=== PATIENT | female | born 1935 | race Hispanic/Latino ===

== ENCOUNTER → 2017-12-08 | Outpatient (CLI) | payer MEDICARE ==
[~2017-12-08] MED LIST: FURO20TA4 PO; METO100T7 PO; SACU1TAB7 PO
== END | disposition home or self-care (01) ==
LOC: SHCH 09:41
PROVIDERS: ATTEND Internal Medicine Cardiovascular Disease
DX: I08.1 Rheumatic disorders of both mitral and tricuspid valves (principal); I25.5 Ischemic cardiomyopathy
CPT/HCPCS: 93306

== ENCOUNTER 2017-12-13 13:31 | Emergency (ER) | payer MEDICARE ==
[2017-12-13 14:08] LABS: BASOPHILS % (AUTO) 1.4 % (0.0-5.0); EOSINOPHILS % (AUTO) 3.4 % (0.0-8.0); HEMATOCRIT 36.8 % (36-48); LYMPHOCYTES % (AUTO) 28.4 % (21.0-51.0); MEAN CORPUSCULAR HGB CONC 33.8 g/dL (32.0-36.0); MEAN CORPUSCULAR VOLUME 88.9 fL (79-99); MONOCYTES % (AUTO) 12.8 % (3.0-13.0); NUCLEATED RED BLOOD CELLS 0.1 % (0.0-0.19); PLATELET COUNT (AUTO) 162 K/uL (130-400); RED BLOOD CELL COUNT(AUTO) 4.14 MIL/uL (4.00-5.50); RED CELL DISTRIBUTION WIDTH 12.8 % (11.0-15.5); WHITE BLOOD COUNT (AUTO) 5.7 K/uL (4.8-10.8)
[2017-12-13 14:13] LABS: CREATININE 1.2 mg/dL (0.5-1.5)
[2017-12-13 14:17] LABS: INR 1.02 (0.85-1.15); PARTIAL THROMBOPLASTIN TIME 28.2 SEC (26.3-35.5); PROTHROMBIN TIME 10.7 SEC (9.6-11.6)
[2017-12-13 14:18] LABS: ALBUMIN 3.8 g/dL (3.5-5.0); BILIRUBIN,TOTAL 0.4 mg/dL (0.2-1.0); TOTAL PROTEIN, SERUM 7.7 g/dL (6.0-8.3)
[2017-12-13 15:36] LABS: APPEARANCE,URINE Clear (CLEAR); BILIRUBIN,URINE Negative (NEGATIVE); COLOR,URINE Yellow (YELLOW); GLUCOSE, URINE (UA) Negative (NEGATIVE); KETONES,URINE Negative (NEGATIVE); LEUKOCYTE ESTERASE ,URINE Small (NEGATIVE); NITRATE,URINE Negative (NEGATIVE); OCCULT BLOOD,URINE Negative (NEGATIVE); PROTEIN,URINE Negative (NEGATIVE); UROBILINOGEN,URINE 0.2 mg/dL (0.2-1.0)
[2017-12-13 16:25] LABS: RBC,URINE 0-1 /HPF (0-1)
[2017-12-13 16:26] LABS: BACTERIA,URINE Rare /HPF (None Seen); SQUAMOUS EPITHELIAL CELL,UR Rare /LPF (0-2); WBC,URINE 0-1 /HPF (0-1)
== END 2017-12-13 18:09 | disposition home or self-care (01) ==
LOC: EDH 13:31
DX: H81.319 Aural vertigo, unspecified ear (principal); I10 Essential (primary) hypertension; E78.5 Hyperlipidemia, unspecified
CPT/HCPCS: 36415; 70450; 71046; 80053; 81001; 82550; 84484; 85025; 85610; 85730; 87804; 93005

== ENCOUNTER 2018-01-04 13:25 | Observation (INO) | payer MEDICARE ==
[~2018-01-04] VITALS: Ht 152.4 cm; Wt 37.0 kg
[2018-01-04 14:44] LABS: BASOPHILS % (AUTO) 0.5 % (0.0-5.0); HEMATOCRIT 29.6 % (36-48); LYMPHOCYTES % (AUTO) 28.2 % (21.0-51.0); MEAN CORPUSCULAR HEMOGLOBIN 30.4 pg (27.0-33.0); MEAN CORPUSCULAR HGB CONC 34.3 g/dL (32.0-36.0); MEAN CORPUSCULAR VOLUME 88.8 fL (79-99); MONOCYTES % (AUTO) 18.5 % (3.0-13.0); NEUTROPHILS % (AUTO) 52.8 % (40.0-77.0); NUCLEATED RED BLOOD CELLS 0.1 % (0.0-0.19); PLATELET COUNT (AUTO) 79 K/uL (130-400); RED BLOOD CELL COUNT(AUTO) 3.34 MIL/uL (4.00-5.50); WHITE BLOOD COUNT (AUTO) 2.5 K/uL (4.8-10.8)
[2018-01-04 15:13] LABS: CREATINE KINASE MB 1.1 ng/mL (0.5-3.6)
[2018-01-04 15:15] LABS: BILIRUBIN,URINE Negative (NEGATIVE); COLOR,URINE Yellow (YELLOW); GLUCOSE, URINE (UA) Negative (NEGATIVE); KETONES,URINE Negative (NEGATIVE); LEUKOCYTE ESTERASE ,URINE Small (NEGATIVE); NITRATE,URINE Negative (NEGATIVE); OCCULT BLOOD,URINE Negative (NEGATIVE); PROTEIN,URINE POS 1+ (NEGATIVE)
[2018-01-04 15:16] LABS: APPEARANCE,URINE SLIGHTLY CLOUDY (CLEAR)
[2018-01-04 15:25] LABS: BACTERIA,URINE Few /HPF (None Seen); RBC,URINE 0-1 /HPF (0-1)
[2018-01-04 15:26] LABS: COARSE GRANULAR CASTS,URINE 0-2 /LPF (None Seen); MUCUS,URINE Rare LPF (None Seen); SQUAMOUS EPITHELIAL CELL,UR Few /LPF (0-2)
[2018-01-04] MEDS ORDERED: ASPIRIN 325 MG TABLET ONE (15:26)
[2018-01-04] MEDS ORDERED: ENOXAPARIN SODIUM 40 MG/0.4 ML SYRINGE SQ ONE (15:26)
[2018-01-04 15:41] LABS: BAND NEUTROPHILS % (MANUAL) 4 % (0-2); LYMPHOCYTES % (MANUAL) 38 % (22-44); MONOCYTES % (MANUAL) 10 % (2-9); SEGMENTED NEUTROPHILS % 48 % (40-70)
[2018-01-04 15:42] LABS: MAN.DIFF COMMENT-IMPRESSION MANUAL DIFFERENTIAL
[2018-01-04] MEDS ORDERED: OSELTAMIVIR PHOSPHATE 75 MG CAP ONE (16:17)
[2018-01-04] MEDS ORDERED: 1/2 NORMAL SALINE 1,000 ML IV ONE (18:20)
[2018-01-04 18:28] LABS: CREATINE KINASE MB 1.3 ng/mL (0.5-3.6)
[2018-01-04 18:38] LABS: CREATININE 2.2 mg/dL (0.5-1.5); POTASSIUM 4.2 mmol/L (3.5-5.1)
[2018-01-04 21:35] VITALS: BP 138/64
[2018-01-04 22:51] LABS: CREATINE KINASE MB 1.2 ng/mL (0.5-3.6)
[2018-01-04 22:57] LABS: TROPONIN I 1.41 ng/mL (0.00-0.06)
[2018-01-04] MEDS ORDERED: 1/2 NORMAL SALINE 1,000 ML IV SCH (23:15)
[2018-01-05] VITALS (7 sets, daily range): BP systolic 135–142; BP diastolic 62–69
[2018-01-05 06:16] LABS: ALBUMIN 3.2 g/dL (3.5-5.0); BILIRUBIN,TOTAL 0.6 mg/dL (0.2-1.0); CREATININE 2.3 mg/dL (0.5-1.5); POTASSIUM 4.2 mmol/L (3.5-5.1); TOTAL PROTEIN, SERUM 6.4 g/dL (6.0-8.3)
[2018-01-05 07:10] LABS: BASOPHILS % (AUTO) 0.3 % (0.0-5.0); HEMATOCRIT 32.1 % (36-48); LYMPHOCYTES % (AUTO) 25.4 % (21.0-51.0); MEAN CORPUSCULAR HEMOGLOBIN 30.8 pg (27.0-33.0); MEAN CORPUSCULAR HGB CONC 34.6 g/dL (32.0-36.0); MEAN CORPUSCULAR VOLUME 88.9 fL (79-99); MONOCYTES % (AUTO) 15.5 % (3.0-13.0); NEUTROPHILS % (AUTO) 58.8 % (40.0-77.0); PLATELET COUNT (AUTO) 94 K/uL (130-400); RED BLOOD CELL COUNT(AUTO) 3.61 MIL/uL (4.00-5.50); RED CELL DISTRIBUTION WIDTH 13.3 % (11.0-15.5); WHITE BLOOD COUNT (AUTO) 3.1 K/uL (4.8-10.8)
[2018-01-05] MEDS ORDERED: COMPOUND PO MISCELLANEOUS 1 EACH MISC MISC PRN (07:30)
[2018-01-05] MEDS: AZITHROMYCIN 250 MG TABLET PO SCH (08:55)
[2018-01-05] MEDS ORDERED: PHARMACY COMMUNICATION MISC SCH (09:00)
[2018-01-05] MEDS: OSELTAMIVIR SUSP 15 MG/ML (6 CAPS/29ML) PO SCH ×2 (09:30)
[2018-01-05] MEDS ORDERED: METO100T7 PO (10:08)
[2018-01-05] MEDS ORDERED: SACU1TAB7 PO (10:08)
[2018-01-05] MEDS ORDERED: FURO20TA4 PO (10:08)
[2018-01-05] MEDS: FUROSEMIDE 10 MG/ML 2ML VIAL IV SCH ×2 (12:23→23:03)
[2018-01-05] MEDS: METOPROLOL TARTRATE 50 MG TAB PO SCH (19:50)
[2018-01-05] MEDS: ENTRESTO PO SCH (19:51)
[2018-01-06 04:00] VITALS: BP 142/67
[2018-01-06 06:13] LABS: CREATININE 2.1 mg/dL (0.5-1.5); POTASSIUM 3.8 mmol/L (3.5-5.1)
[2018-01-06 07:00] VITALS: BP 141/60
[2018-01-06] MEDS: METOPROLOL TARTRATE 50 MG TAB PO SCH (08:41)
[2018-01-06] MEDS: AZITHROMYCIN 250 MG TABLET PO SCH (08:41)
[2018-01-06] MEDS: OSELTAMIVIR SUSP 15 MG/ML (6 CAPS/29ML) PO SCH ×2 (08:42)
[2018-01-06] MEDS: ENTRESTO PO SCH (08:43)
[2018-01-06] MEDS ORDERED: FUROSEMIDE 20 MG TABLET PO SCH (09:00)
[2018-01-06] MEDS ORDERED: LOSARTAN 50 MG TABLET PO SCH (09:00)
[2018-01-06] MEDS ORDERED: ENOXAPARIN SODIUM 30 MG/0.3 ML SQ SCH (09:00)
== END 2018-01-06 10:45 | disposition home or self-care (01) ==
LOC: EDH 13:25 → EDHIP 15:55 → 4CH 20:54
PROVIDERS: ADMIT Internal Medicine; ATTEND Internal Medicine
DX: J11.1 Influenza due to unidentified influenza virus with other respiratory manifestations (principal); J40 Bronchitis, not specified as acute or chronic; E86.0 Dehydration; E78.5 Hyperlipidemia, unspecified; I13.0 Hypertensive heart and chronic kidney disease with heart failure and stage 1 through stage 4 chronic kidney disease, or unspecified chronic kidney disease; N18.4 Chronic kidney disease, stage 4 (severe); I50.43 Acute on chronic combined systolic (congestive) and diastolic (congestive) heart failure; I25.5 Ischemic cardiomyopathy; I25.10 Atherosclerotic heart disease of native coronary artery without angina pectoris; I09.9 Rheumatic heart disease, unspecified; I34.0 Nonrheumatic mitral (valve) insufficiency; Z85.3 Personal history of malignant neoplasm of breast
CPT/HCPCS: 36415 ×3; 71045; 80048 ×2; 80053; 81001; 82550 ×3; 82553 ×3; 83874; 83880; 84484 ×3; 85007; 85025 ×2; 87804 ×2; 93005 ×2; 96374; 96376; 99285; G0378 ×43; J1650; J1940 ×2

== ENCOUNTER 2018-01-12 10:35 | Inpatient (IN) | payer MEDICARE ==
[~2018-01-12] VITALS: Ht 152.4 cm; Wt 33.2 kg
[~2018-01-12 10:35] MED LIST changes: -FURO20TA4 PO
[2018-01-12 11:32] LABS: BASOPHILS % (AUTO) 0.8 % (0.0-5.0); EOSINOPHILS % (AUTO) 0.3 % (0.0-8.0); HEMATOCRIT 32.5 % (36-48); LYMPHOCYTES % (AUTO) 14.3 % (21.0-51.0); MEAN CORPUSCULAR HEMOGLOBIN 30.5 pg (27.0-33.0); MEAN CORPUSCULAR HGB CONC 34.5 g/dL (32.0-36.0); MEAN CORPUSCULAR VOLUME 88.6 fL (79-99); MONOCYTES % (AUTO) 8.8 % (3.0-13.0); NEUTROPHILS % (AUTO) 75.8 % (40.0-77.0); PLATELET COUNT (AUTO) 196 K/uL (130-400); RED BLOOD CELL COUNT(AUTO) 3.67 MIL/uL (4.00-5.50); RED CELL DISTRIBUTION WIDTH 13.3 % (11.0-15.5); WHITE BLOOD COUNT (AUTO) 6.1 K/uL (4.8-10.8)
[2018-01-12 11:37] LABS: CREATININE 1.4 mg/dL (0.5-1.5); POTASSIUM 3.2 mmol/L (3.5-5.1)
[2018-01-12 11:51] LABS: ALBUMIN 3.5 g/dL (3.5-5.0); BILIRUBIN,TOTAL 0.8 mg/dL (0.2-1.0); CREATINE KINASE MB 0.9 ng/mL (0.5-3.6); TOTAL PROTEIN, SERUM 7.2 g/dL (6.0-8.3)
[2018-01-12 11:52] LABS: B-TYPE NATRIURETIC PEPTIDE > 5000 pg/mL (0-100)
[2018-01-12] MEDS ORDERED: POTASSIUM BICARB/CIT AC 25 MEQ TABLET.EFF ONE (12:44)
[2018-01-12] MEDS ORDERED: FUROSEMIDE 10 MG/ML 4ML VIAL ONE (13:09)
[2018-01-12 14:14] LABS: APPEARANCE,URINE Clear (CLEAR); BILIRUBIN,URINE Negative (NEGATIVE); COLOR,URINE Yellow (YELLOW); GLUCOSE, URINE (UA) Negative (NEGATIVE); KETONES,URINE Negative (NEGATIVE); LEUKOCYTE ESTERASE ,URINE Negative (NEGATIVE); NITRATE,URINE Negative (NEGATIVE); OCCULT BLOOD,URINE Negative (NEGATIVE); PH,URINE 6.5 (5.0-8.0); PROTEIN,URINE Negative (NEGATIVE); UROBILINOGEN,URINE 0.2 mg/dL (0.2-1.0)
[2018-01-12 16:00] VITALS: BP 147/61
[2018-01-12] MEDS ORDERED: FURO20TA4 PO (16:34)
[2018-01-12] MEDS ORDERED: POTASSIUM CHLORIDE 20 MEQ ERTAB PO PRN (19:30)
[2018-01-12] MEDS ORDERED: POTASSIUM CHLORIDE 20MEQ/100ML 100 ML IV PRN (19:30)
[2018-01-12] MEDS ORDERED: LIDOCAINE HCL-MPF 1% 2ML VIAL IVP PRN (19:30)
[2018-01-12 20:00] VITALS: BP 157/73
[2018-01-12] MEDS: POTASSIUM CHLORIDE 10% ELIXIR 20 MEQ/15 ML UDCUP PO PRN (21:19)
[2018-01-13] VITALS: BP 157/69
[2018-01-13] MEDS ORDERED: CEFTRIAXONE 1GM/D5W 50ML 50 ML IV SCH (00:15)
[2018-01-13] MEDS: CEFTRIAXONE SODIUM 1 GM IVP SCH (01:36)
[2018-01-13 04:00] VITALS: BP 156/74
[2018-01-13 04:28] LABS: HEMATOCRIT 28.7 % (36-48); MEAN CORPUSCULAR HEMOGLOBIN 30.8 pg (27.0-33.0); MEAN CORPUSCULAR HGB CONC 35.1 g/dL (32.0-36.0); MEAN CORPUSCULAR VOLUME 87.8 fL (79-99); PLATELET COUNT (AUTO) 200 K/uL (130-400); RED BLOOD CELL COUNT(AUTO) 3.27 MIL/uL (4.00-5.50); RED CELL DISTRIBUTION WIDTH 13.3 % (11.0-15.5); WHITE BLOOD COUNT (AUTO) 6.8 K/uL (4.8-10.8)
[2018-01-13 04:45] LABS: ALBUMIN 3.1 g/dL (3.5-5.0); BILIRUBIN,TOTAL 0.6 mg/dL (0.2-1.0); CREATININE 1.3 mg/dL (0.5-1.5); POTASSIUM 3.5 mmol/L (3.5-5.1); TOTAL PROTEIN, SERUM 6.6 g/dL (6.0-8.3)
[2018-01-13 08:00] VITALS: BP 154/62
[2018-01-13] MEDS: METOPROLOL TARTRATE 50 MG TAB PO SCH (09:46)
[2018-01-13] MEDS: LOSARTAN 50 MG TABLET PO SCH (09:46)
[2018-01-13] MEDS: FUROSEMIDE 20 MG TABLET PO SCH (09:46)
[2018-01-13 12:00] VITALS: BP 137/66
[2018-01-13 15:43] VITALS: BP 137/62
[2018-01-13] MEDS: POTASSIUM CHLORIDE 10% ELIXIR 20 MEQ/15 ML UDCUP PO PRN ×2 (15:59→18:35)
[2018-01-13 20:00] VITALS: BP 134/65
[2018-01-14] VITALS (7 sets, daily range): BP systolic 112–147; BP diastolic 58–76
[2018-01-14] MEDS: LOSARTAN 50 MG TABLET PO SCH (08:59)
[2018-01-14] MEDS: FUROSEMIDE 20 MG TABLET PO SCH (09:00)
[2018-01-14] MEDS: METOPROLOL TARTRATE 50 MG TAB PO SCH (09:03)
[2018-01-14] MEDS: CEFTRIAXONE SODIUM 1 GM IVP SCH (10:13)
[2018-01-14] MEDS: POTASSIUM CHLORIDE 10% ELIXIR 20 MEQ/15 ML UDCUP PO PRN ×2 (10:13→13:45)
[2018-01-15] MEDS: CEFTRIAXONE SODIUM 1 GM IVP SCH (01:25)
[2018-01-15 08:07] VITALS: BP 134/59
[2018-01-15] MEDS: LOSARTAN 50 MG TABLET PO SCH (11:12)
[2018-01-15] MEDS: FUROSEMIDE 20 MG TABLET PO SCH (11:13)
[2018-01-15] MEDS: METOPROLOL TARTRATE 50 MG TAB PO SCH (11:14)
[2018-01-15 12:09] VITALS: BP 138/63
[2018-01-15 15:42] VITALS: BP 129/60
[2018-01-15 20:00] VITALS: BP 139/63
[2018-01-15 23:57] VITALS: BP 139/53
[2018-01-16] MEDS: CEFTRIAXONE SODIUM 1 GM IVP SCH (00:51)
[2018-01-16 04:00] VITALS: BP 137/59
[2018-01-16 08:00] VITALS: BP 145/65
[2018-01-16] MEDS: METOPROLOL TARTRATE 50 MG TAB PO SCH (10:05)
[2018-01-16] MEDS: LOSARTAN 50 MG TABLET PO SCH (10:05)
[2018-01-16] MEDS: FUROSEMIDE 20 MG TABLET PO SCH (10:05)
[2018-01-16 11:32] VITALS: BP 146/54
[2018-01-16 15:35] VITALS: BP 137/54
[2018-01-16 19:32] VITALS: BP 143/61
[2018-01-16 23:19] VITALS: BP 138/67
[2018-01-17] MEDS: CEFTRIAXONE SODIUM 1 GM IVP SCH ×2 (00:45→23:44)
[2018-01-17 03:59] VITALS: BP 136/62
[2018-01-17 08:00] VITALS: BP 141/73
[2018-01-17] MEDS: LOSARTAN 50 MG TABLET PO SCH (10:03)
[2018-01-17] MEDS: FUROSEMIDE 20 MG TABLET PO SCH (10:04)
[2018-01-17] MEDS: METOPROLOL TARTRATE 50 MG TAB PO SCH (10:04)
[2018-01-17 11:26] VITALS: BP 118/51
[2018-01-17 15:52] VITALS: BP 128/63
[2018-01-17 20:00] VITALS: BP 134/56
[2018-01-17 23:54] VITALS: BP 149/67
[2018-01-18 04:00] VITALS: BP 147/60
[2018-01-18 08:23] VITALS: BP 149/59
[2018-01-18] MEDS: METOPROLOL TARTRATE 50 MG TAB PO SCH (08:23)
[2018-01-18] MEDS: FUROSEMIDE 20 MG TABLET PO SCH (08:23)
[2018-01-18] MEDS: LOSARTAN 50 MG TABLET PO SCH (08:23)
[2018-01-18 11:57] VITALS: BP 131/52
[2018-01-18 17:47] VITALS: BP 167/71
== END 2018-01-18 17:35 | disposition home health service (06) | DRG 291 ==
LOC: EDH 10:35 → EDHIP 14:07 → OBSVTOIN 14:07 → 3DH 15:10
PROVIDERS: ADMIT Internal Medicine; ATTEND Internal Medicine
DX: I13.0 Hypertensive heart and chronic kidney disease with heart failure and stage 1 through stage 4 chronic kidney disease, or unspecified chronic kidney disease (principal); J18.0 Bronchopneumonia, unspecified organism; J11.08 Influenza due to unidentified influenza virus with specified pneumonia; E46 Unspecified protein-calorie malnutrition; R64 Cachexia; I42.0 Dilated cardiomyopathy; N18.3 Chronic kidney disease, stage 3 (moderate); I50.23 Acute on chronic systolic (congestive) heart failure; Z68.1 Body mass index [BMI] 19.9 or less, adult; I09.9 Rheumatic heart disease, unspecified; E86.9 Volume depletion, unspecified; W19.XXXA Unspecified fall, initial encounter; J20.9 Acute bronchitis, unspecified; E78.5 Hyperlipidemia, unspecified; I25.10 Atherosclerotic heart disease of native coronary artery without angina pectoris; I34.0 Nonrheumatic mitral (valve) insufficiency; I25.5 Ischemic cardiomyopathy; Z85.3 Personal history of malignant neoplasm of breast; Y93.89 Activity, other specified; Y92.098 Other place in other non-institutional residence as the place of occurrence of the external cause; Z90.11 Acquired absence of right breast and nipple; Y99.8 Other external cause status
CPT/HCPCS: 36415; 71045; 80053; 81003; 82550; 82553; 83880; 84132; 84484; 85025; 85027; 87040; 87804; 93005; 97039; A4218; J0696; J1940

== ENCOUNTER → 2019-09-08 | Outpatient (CLI) | payer MEDICARE ==
[~2019-09-08] MED LIST changes: +FURO20TA4 PO
== END | disposition home or self-care (01) ==
LOC: SHCH 09:26
PROVIDERS: ATTEND Internal Medicine Cardiovascular Disease
DX: I73.9 Peripheral vascular disease, unspecified (principal)
CPT/HCPCS: 93926